=== PATIENT | male | born 1990 | race Two or more races ===

== ENCOUNTER 2018-08-09 09:40 | Emergency (ER) | payer MEDICAID ==
[~2018-08-09] VITALS: Ht 182.9 cm; Wt 79.4 kg
[2018-08-09 09:47] VITALS: BP 163/105; Ht 182.9 cm; Wt 79.4 kg
[2018-08-09 10:58] LABS: BASOPHIL % 0.3 % (0-2); PLATELET COUNT 289 x10^3mcL (130-400); RED CELL DISTRIBUTION WIDTH 14.1 % (11.5-14.5)
[2018-08-09 10:59] LABS: CALCIUM 9.7 mg/dL (8.5-10.1); CARBON DIOXIDE 23.8 mmol/L (21-32); CHLORIDE SERUM 99 mmol/L (98-107); CREATININE SERUM 1.3 mg/dL (0.7-1.3); GFR1 > 60 mL/min; GLUCOSE SERUM 82 mg/dL (74-106); POTASSIUM SERUM 4.3 mmol/L (3.5-5.1); SODIUM SERUM 135 mmol/L (136-145)
== END 2018-08-09 11:59 | disposition home or self-care (01) ==
LOC: ED 09:40
PROVIDERS: Emergency Medicine
DX: F15.121 Other stimulant abuse with intoxication delirium (principal); R30.0 Dysuria
CPT/HCPCS: 36415; Q0092